=== PATIENT | female | born 1955 | race Caucasian/White ===

== ENCOUNTER 2022-03-28 21:10 | Emergency (ER) | payer MEDICARE, SELFPAY ==
--- NOTE | 2022-03-28 21:15 | XRR_ITS ---
PROCEDURE INFORMATION: Exam: XR Right Foot Exam date and time: 03/28/2022 9:27 PM Age: 66 years old Clinical indication: Injury or trauma; Fall; Swelling (edema); Right; Patient HX: Patient stepped in pothole and fell. C/O pain to RT ankle. Swelling to lateral malleolus. TECHNIQUE: Imaging protocol: XR Right foot. Views: 1 or 2 views. COMPARISON: No relevant prior studies available. FINDINGS: Bones/joints: Nondisplaced fracture of the tip of the fibula. Soft tissues: Normal. XR/XR foot RT 2V [id number] IMPRESSION: Nondisplaced fracture of the tip of the fibula.
--- NOTE | 2022-03-28 21:15 | XRR_ITS ---
PROCEDURE INFORMATION: Exam: XR Right Ankle Exam date and time: 03/28/2022 9:27 PM Age: 66 years old Clinical indication: Injury or trauma; Fall; Swelling (edema); Right; Patient HX: Patient stepped in pothole and fell. C/O pain to RT ankle. Swelling to lateral malleolus. TECHNIQUE: Imaging protocol: XR Right ankle. Views: 3 or more views. COMPARISON: No relevant prior studies available. FINDINGS: Bones/joints: Fractures of the tip of the lateral malleolus. Soft tissues: Lateral soft tissue edema. XR/XR ankle RT min 3V* [id number] IMPRESSION: 1. Fractures of the tip of the lateral malleolus. 2. Lateral soft tissue edema.
[2022-03-28 21:19] VITALS: BP 170/85; PULSE 78; RESP 16; TEMP 36.4; O2SAT 96; BMI 28.7
--- NOTE | 2022-03-28 21:31 | ED_ITS ---
HPI - Fall General: Chief Complaint: Fall Stated Complaint: Fell in Hold Rt Foot Injury Time Seen by Provider: 03/28/22 21:18 Source: patient Mode of arrival: ambulatory Limitations: no limitations History of Present Illness: 66-year-old female who had fell earlier today she states she seen at [facility] had an x-ray and was told that she had a fracture they placed her in an To wrap prescribed Tylenol and she has been ambulating on it since discharge. States that her pain is worsened. She rates her pain a 6 out of 10 denies any new injuries does have swelling over that portion of the ankle. Associated symptoms-after fall: Denies abdominal pain, chest pain or headache(s) Review of Systems Const: Denies: fever(s), chills, body aches or change in appetite Eyes: Denies: blurry vision or eye discomfort ENMT: Denies: throat pain or dental pain Card: Denies: chest pain Resp: Denies: dyspnea GI: Denies: abdominal pain, nausea, vomiting or diarrhea : Denies: dysuria Musc: Reports: extremity pain Skin/Breast: Denies: rash Neuro: Denies: headache(s) Psych: Denies: depression [place]/Lymph: Denies: easy bruising All/Imm: Denies: urticaria PFSH ED PFSH: Medical History (Updated 03/28/22 @ 22:17 by Tiffany Ruth MD) Ankle fracture, right Social History (Updated 03/28/22 @ 22:17 by Tiffany Ruth MD) Substance/Drug Use: never Physical Exam Const: COMMON NORMALS: no acute distress, patient oriented x3 and healthy appearing HENMT: COMMON NORMALS: normocephalic and atraumatic HEAD & SCALP: normocephalic and atraumatic Eye: COMMON NORMALS: Equal, round and reactive pupils present and EOMs intact bilaterally PUPIL: Yes Equal, round and reactive pupils present Neck/C-Spine: COMMON NORMALS: full ROM and supple Chest: COMMONS NORMALS: normal inspection of the chest and normal palpation of entire chest wall Resp: COMMON NORMALS: normal respiratory effort, No retractions, No use of accessory muscles and clear to auscultation bilaterally AUSCULTATION: clear to auscultation bilaterally Cardio: COMMON NORMALS: regular rate, regular rhythm and No murmurs present (Cardio) RATE: regular rate RHYTHM: regular rhythm GI: COMMON NORMALS: Normal to inspection, nondistended, normoactive bowel sounds present, Soft to palpation, non-tender and no masses PALPATION: Yes Soft to palpation Extremity: NARRATIVE EXTREMITY EXAM: Tenderness over right lateral ankle distal pulses intact Neuro: COMMON NORMALS: patient oriented x3, moves all extremities and no focal motor deficits Psych: COMMON NORMALS: mental status grossly normal, Normal thought process present and cooperative THOUGHT PROCESS: Normal thought process present Skin: COMMON NORMALS: no rashes or lesions noted and no wounds GENERAL SKIN EXAM: no rashes or lesions noted Course Vital Signs: Vital signs: Vital Signs Temperature 97.6 F 03/28/22 21:19 Pulse Rate 78 03/28/22 21:19 Respiratory Rate 16 03/28/22 21:19 Blood Pressure 170/85 03/28/22 21:19 Pulse Oximetry 96 03/28/22 21:19 MDM - Fall Medical Decision Making Patient presents here with an ankle fracture we will place patient's splint she is to be non weightbearing and will follow-up with orthopedics she states she does not want a fall. She lives in [place] is going back home informed her she needs to follow-up there. Discharge Plan Discharge Patient Disposition: Home Clinical Impression: Ankle fracture, right Qualifiers: Encounter type: initial encounter Fracture type: closed Qualified Code(s): S82.891A - Other fracture of right lower leg, initial encounter for closed fracture Condition: Stable Prescriptions: New hydrocodone-acetaminophen 5-325 mg tablet 1 tab PO Q6H PRN (Reason: pain) Qty: 14 0RF ondansetron 4 mg tablet,disintegrating 4 mg PO Q6H PRN (Reason: nausea and vomiting) Qty: 14 0RF Discharge Orders: Discharge ED (Routine); Ordered 03/28/22 Ordered By: Tiffany Ruth Referrals: Lawrence Henry MD [Physician] - 1-3 days Discharge Diet: Advance as tolerated Discharge Activity: Resume usual activity Coding Level of Care Code ED Lean Specialist for Brigitte Gerardo
--- NOTE | 2022-03-29 22:25 | DCPLANNER ---
Addendum entered by Ashlyn Vang 04/12/22 14:09: Patient had a follow up appointment scheduled for 03.30.22 with ortho - patient did attend appointment. Original Note: strategic communications manager had message to schedule a follow up appointment for patient with ortho. strategic communications manager sent patients information to the front office staff at ortho. Patients information will be printed and reviewed. Clinic will call patient with appointment information.
== END 2022-03-28 23:00 | disposition home or self-care (01) ==
PROVIDERS: Emergency Provider Emergency Medicine
DX: S82.491A Other fracture of shaft of right fibula, initial encounter for closed fracture (principal); W17.2XXA Fall into hole, initial encounter
CPT/HCPCS: 29515; 73610; 73620; 99283; E0114

== ENCOUNTER 2022-03-30 06:00 | Outpatient (CLI) | payer MEDICARE, SELFPAY | END 2022-03-30 06:01 | disposition home or self-care (01) | LOC: SPT 04-07 11:34 | PROVIDERS: Referring Provider Orthopaedic Surgery; Visit Provider Orthopaedic Surgery | DX: Z46.89 Encounter for fitting and adjustment of other specified devices (principal); S82.839D Other fracture of upper and lower end of unspecified fibula, subsequent encounter for closed fracture with routine healing; X58.XXXD Exposure to other specified factors, subsequent encounter | CPT/HCPCS: 97760; L4361 ==

== ENCOUNTER → 2022-03-30 10:20 | Outpatient (BNVA) | payer MEDICARE, SELFPAY | PROVIDERS: Referring Provider Emergency Medicine; Visit Provider Orthopaedic Surgery | DX: S82.831A Other fracture of upper and lower end of right fibula, initial encounter for closed fracture (principal); W17.2XXA Fall into hole, initial encounter | CPT/HCPCS: 27786 ==